=== PATIENT | male | born 1965 | race Hispanic/Latino ===

== ENCOUNTER 2021-05-27 05:36 | Day surgery (SDC) | payer OTHER ==
[2021-05-22 10:30] LABS: #Basophils 0.1 10x3/uL (0.0-0.2); #Eosinphils 0.2 10x3/uL (0.0-0.5); #Monocytes 0.6 10x3/uL (0.0-1.1); #Neutrophils 4.6 10x3/uL (1.5-8.4); %Basophils 0.8 % (0.0-2.0); %Eosinophils 2.1 % (0.0-6.0); %Lymphocytes 29.3 % (18.0-47.0); %Monocytes 7.4 % (0.0-10.0); %Neutrophils 59.8 % (40.0-75.0); Mean Corpuscular HGB CONC 32.6 g/dL (32.0-36.0); Mean Corpuscular Hemoglobin 28.1 pg (27.0-33.0); Mean Corpuscular Volume 86.3 fl (81.2-95.1); Mean Platelet Volume 9.6 fl (7.4-10.4); Platelet Count 278 10x3/uL (150-450); RBC Distribution Width 13.2 % (11.5-14.5); Red Blood Cell (RBC) Count 5.33 10x6/uL (4.32-5.72); White Blood Cell (WBC) Count 7.7 10x3/uL (3.5-10.5)
[2021-05-22 10:49] LABS: Bilirubin Neg (Negative); Blood, Urine Negative (Negative); Clarity Clear (Clear); Glucose, Urine (Dipstick) >=1000 mg/dL (Negative); Ketone, Urine Negative (Negative); Leukocyte Negative (Negative); Nitrite Negative (Negative); Protein, Urine (Dipstick) 15 mg/dl (Neg-Trace); Specific Gravity, Urine 1.015 (1.002-1.036); Urobilinogen Normal mg/dL (Less than 2)
[2021-05-22 10:50] LABS: Anion Gap 13 mmol/L (10-20); BUN (Urea Nitrogen) 28 mg/dL (8.4-25.7); Calc. Creatinine Clearance 0 mL/min (70-130); Carbon Dioxide 22 mmol/L (22-29); Chloride 108 mmol/L (98-107); Glucose 163 mg/dL (70-105); Potassium 4.7 mmol/L (3.5-5.1); Sodium 138 mmol/L (136-145)
[2021-05-22 10:55] LABS: INR-International Normal Ratio 0.9; Prothrombin Time 10.1 sec (9.5-12.1)
[2021-05-22 23:39] LABS: SARS-CoV-2 PCR by NAA Not Detected (NotDetected)
[2021-05-24 10:20] VITALS: BMI 27.6
[2021-05-27] MEDS ORDERED: Fentanyl 100 MCG/2 ML VIAL ONE ×5 (05:58→10:28)
[2021-05-27] MEDS ORDERED: Vancomycin 1 GM/200 ML BAG ONE (06:03)
[2021-05-27] MEDS ORDERED: Sodium Chloride 0.9% 100 ML ONE (06:03)
[2021-05-27] MEDS ORDERED: ceFAZolin 2 GM/DEX 5% 100 ML BAG ONE (06:03)
[2021-05-27] MEDS ORDERED: Tranexamic Acid 1,000 MG/10 ML VIAL ONE ×2 (06:03→09:30)
[2021-05-27] MEDS ORDERED: HYDROmorphone 0.5 MG/0.5 ML SYRINGE ONE (06:11)
[2021-05-27] MEDS ORDERED: Lidocaine 1% (PF) 30 ML VIAL ONE (06:23)
[2021-05-27] MEDS ORDERED: Bupivacaine 0.25% HCL 30 ML VIAL ONE (06:23)
[2021-05-27] MEDS ORDERED: EPINEPHrine 1 MG/ML AMP ONE (06:23)
[2021-05-27] MEDS ORDERED: Bupivacaine PF 0.5% 30 ML VIAL ONE (06:23)
[2021-05-27] MEDS ORDERED: methylPREDNISolone Acetate 40 mg/ml Vial ONE (06:23)
[2021-05-27] MEDS ORDERED: Lidocaine 1% PF 5 ML VIAL ONE (06:39)
[2021-05-27] MEDS ORDERED: Midazolam HCl 2 mg/2 ml Vial ONE (06:39)
[2021-05-27] MEDS ORDERED: Ondansetron PF 4 MG/2 ML Vial ONE (06:45)
[2021-05-27] MEDS ORDERED: Bupivacaine HCl 0.5%/Epinephrine 1:200,000/PF 30 ml Vial ONE (06:45)
[2021-05-27] MEDS ORDERED: PROPOFOL 200 MG/20 ML VIAL ONE (06:45)
[2021-05-27] MEDS ORDERED: Dexamethasone 20 MG/5 ML VIAL ONE (06:45)
[2021-05-27] MEDS ORDERED: Promethazine HCl 25 MG/ML VIAL IVPB PRN (07:36)
[2021-05-27] MEDS ORDERED: Ondansetron HCl/PF 4 MG/2 ML Vial IVP PRN (07:36)
[2021-05-27] MEDS ORDERED: Promethazine HCl 25 MG/ML VIAL IM PRN ×3 (07:36→09:00)
[2021-05-27] MEDS ORDERED: HYDROmorphone 2 MG/ML VIAL SLOW IVP PRN (07:36)
[2021-05-27] MEDS ORDERED: Fentanyl 100 MCG/2 ML VIAL IV PRN (08:07)
[2021-05-27] MEDS ORDERED: HYDROcodone/Acetaminophen 10/325 mg Tablet PO PRN ×2 (08:15)
[2021-05-27] MEDS ORDERED: Ondansetron PF 4 MG/2 ML Vial IVP PRN ×2 (08:15→09:00)
[2021-05-27] MEDS ORDERED: Ropivacaine 0.2% 550 ML 550 ML NERVE BLCK SCH (08:15)
[2021-05-27] MEDS ORDERED: Zolpidem Tartrate 5 MG TAB PO PRN ×2 (08:15→09:00)
[2021-05-27] MEDS ORDERED: traMADol HCl 50 MG TAB PO PRN ×2 (08:15)
[2021-05-27] MEDS ORDERED: diphenhydrAMINE 25 MG CAP PO PRN (09:00)
[2021-05-27] MEDS ORDERED: CEFAZOLIN 2 GM in Premix Bag 1 BAG IVPB SCH (09:00)
[2021-05-27] MEDS ORDERED: Tranexamic Acid 1,000 MG in Sodium Chloride 0.9% 100 ML IVPB SCH (09:00)
[2021-05-27] MEDS ORDERED: Acetaminophen 325 MG TAB PO PRN (09:00)
[2021-05-27] MEDS: Aspirin 81 mg Enteric Coated Tablet PO SCH ×2 (12:47→20:15)
[2021-05-27] MEDS: Ferrous Gluconate 324 MG TAB PO SCH ×2 (12:47→20:16)
[2021-05-27] MEDS: Senokot S 8.6-50 MG TAB PO SCH ×2 (12:48→20:16)
[2021-05-27] MEDS: Multivitamin W/ Minerals 1 TAB PO SCH (12:48)
[2021-05-27] MEDS: Sodium Chloride 0.9% 1,000 ML IV SCH ×2 (12:48→13:53)
[2021-05-27] MEDS: Ketorolac Tromethamine 30 MG/ML VIAL IVP SCH ×2 (13:56→22:15)
[2021-05-27] MEDS: ceFAZolin Sodium/D5W 2 GM in Premix Bag 1 BAG IVPB SCH ×2 (13:56→22:15)
[2021-05-27] MEDS ORDERED: FLU VACC QS2021-22(6MOS UP)/PF 60 MCG/0.5 ML SYRINGE IM ONE (14:00)
[2021-05-27] MEDS ORDERED: Vancomycin 1 GM in Premix Bag 1 BAG IVPB SCH (18:00)
[2021-05-27] MEDS: metFORMIN 500 MG TAB PO SCH (20:16)
[2021-05-27] MEDS ORDERED: Non-Formulary Item 1 EACH (Metformin Hcl [Metformin Hcl] 1,000 MG Tablet) PO SCH (21:00)
[2021-05-28] MEDS: Ketorolac Tromethamine 30 MG/ML VIAL IVP SCH (05:08)
[2021-05-28] MEDS: Sodium Chloride 0.9% 1,000 ML IV SCH (05:09)
[2021-05-28] MEDS ORDERED: Lisinopril 20 MG TAB PO SCH (09:00)
[2021-05-28] MEDS ORDERED: Alogliptin 25 MG TAB PO SCH (09:00)
[2021-05-28] MEDS ORDERED: Non-Formulary Item 1 EACH (Linagliptin [Tradjenta] 5 MG Tablet) PO SCH (09:00)
[2021-05-28] MEDS ORDERED: Fenofibrate Nanocrystallized 145 MG TAB PO SCH (09:00)
[2021-05-28] MEDS: metFORMIN 500 MG TAB PO SCH (09:37)
[2021-05-28] MEDS: Senokot S 8.6-50 MG TAB PO SCH (09:37)
[2021-05-28] MEDS: Aspirin 81 mg Enteric Coated Tablet PO SCH (09:38)
[2021-05-28] MEDS: Ferrous Gluconate 324 MG TAB PO SCH (09:38)
[2021-05-28] MEDS: Multivitamin W/ Minerals 1 TAB PO SCH (09:38)
[2021-05-28 12:11] VITALS: BP 148/74; TEMP 98.2
== END 2021-05-28 12:13 | disposition home or self-care (01) ==
LOC: SDC 05:36 → EDSTATUS 09:00 → SJJU 09:00 → SDC 05-28 12:13
PROVIDERS: ATTEND Orthopaedic Surgery
PROC: 8E0YXBZ Computer Assisted Procedure of Lower Extremity (ICD-10-PCS; principal; 2021-05-27)
PROC: 3E0T3BZ Introduction of Anesthetic Agent into Peripheral Nerves and Plexi, Percutaneous Approach (ICD-10-PCS; principal; 2021-05-27)
PROC: 0SRD0J9 Replacement of Left Knee Joint with Synthetic Substitute, Cemented, Open Approach (ICD-10-PCS; principal; 2021-05-27)
PROC: 3E0U33Z Introduction of Anti-inflammatory into Joints, Percutaneous Approach (ICD-10-PCS; principal; 2021-05-27)
DX: M17.0 Bilateral primary osteoarthritis of knee (principal); E11.9 Type 2 diabetes mellitus without complications; F17.200 Nicotine dependence, unspecified, uncomplicated; Z79.82 Long term (current) use of aspirin; Z79.84 Long term (current) use of oral hypoglycemic drugs; Z79.899 Other long term (current) drug therapy
CPT/HCPCS: 36416; 80048; 81003; 85025; 85610; 86850; 86900; 86901; 87081; A4306; C1713; C1776; J0171; J1100; J1170; J1885; J2001; J2250; J2405; J2704; J2795; J2920; J3010; J3370; J3490; J7050; J7620; S0020; U0003; U0005

== ENCOUNTER 2022-03-14 13:27 | Outpatient (CLI) | payer BC, OTHER ==
[2022-03-14 14:55] LABS: Bilirubin Neg (Negative); Blood, Urine 10 (Negative); Clarity Clear (Clear); Glucose, Urine (Dipstick) 250 mg/dL (Negative); Ketone, Urine Negative (Negative); Leukocyte Negative (Negative); Nitrite Negative (Negative); Protein, Urine (Dipstick) 30 mg/dl (Neg-Trace); Urobilinogen Normal mg/dL (Less than 2)
[2022-03-14 15:03] LABS: Hemoglobin 12.1 g/dL (13.5-17.5); Mean Corpuscular HGB CONC 31.8 g/dL (32.0-36.0); Mean Corpuscular Hemoglobin 26.4 pg (27.0-33.0); Mean Corpuscular Volume 83.2 fl (81.2-95.1); Mean Platelet Volume 8.6 fl (7.4-10.4); Platelet Count 441 10x3/uL (150-450); RBC Distribution Width 13.6 % (11.5-14.5); Red Blood Cell (RBC) Count 4.58 10x6/uL (4.32-5.72); White Blood Cell (WBC) Count 9.2 10x3/uL (3.5-10.5)
[2022-03-14 15:06] LABS: Bacteria/HPF None Seen HPF (None Seen); Mucous/LPF 1+ LPF (<2+); Squamous Epithelial 0-3 HPF (0-3); WBC/HPF 0-3 HPF (0-3)
[2022-03-14 15:16] LABS: INR-International Normal Ratio 0.9; Prothrombin Time 10.3 sec (9.5-12.1)
[2022-03-14 15:24] LABS: Anion Gap 16 mmol/L (10-20); BUN (Urea Nitrogen) 20 mg/dL (8.4-25.7); Calc. Creatinine Clearance 0 mL/min (70-130); Calcium 9.5 mg/dL (7.8-10.44); Carbon Dioxide 25 mmol/L (22-29); Chloride 101 mmol/L (98-107); Estimated GFR 94; Glucose 168 mg/dL (70-105); Potassium 4.9 mmol/L (3.5-5.1); Sodium 137 mmol/L (136-145)
== END 2022-03-14 13:28 | disposition home or self-care (01) ==
LOC: LABBT 13:27
PROVIDERS: ATTEND Orthopaedic Surgery
DX: Z01.818 Encounter for other preprocedural examination (principal); Z20.822 Contact with and (suspected) exposure to COVID-19
CPT/HCPCS: 71046; 80048; 81001; 81003; 85025; 85027; 85610; 86850; 86900; 86901; 87081; 87086; 87811; 93005; 93010; U0003; U0005

== ENCOUNTER 2022-03-14 13:30 | Inpatient (IN) | payer BC, OTHER, SELFPAY ==
[2022-03-14 09:50] VITALS: BMI 25.7
[2022-03-17] MEDS ORDERED: Sodium Chloride 0.9% 100 ML ONE ×2 (07:29→09:33)
[2022-03-17] MEDS ORDERED: Tranexamic Acid 1,000 MG/10 ML VIAL ONE ×2 (07:29→11:47)
[2022-03-17] MEDS ORDERED: Vancomycin 1 GM/200 ML BAG ONE (07:29)
[2022-03-17] MEDS ORDERED: Midazolam HCl 2 mg/2 ml Vial ONE (08:27)
[2022-03-17] MEDS ORDERED: Fentanyl 100 MCG/2 ML VIAL ONE ×3 (08:27→11:54)
[2022-03-17] MEDS ORDERED: Fentanyl 100 MCG/2 ML VIAL IV PRN (09:09)
[2022-03-17] MEDS ORDERED: Zolpidem Tartrate 5 MG TAB PO PRN ×2 (09:15→09:56)
[2022-03-17] MEDS ORDERED: Promethazine HCl 25 MG/ML VIAL IM PRN ×3 (09:15→11:25)
[2022-03-17] MEDS ORDERED: HYDROcodone/Acetaminophen 10/325 mg Tablet PO PRN (09:15)
[2022-03-17] MEDS ORDERED: Ropivacaine 0.2% 550 ML 550 ML NERVE BLCK SCH (09:15)
[2022-03-17] MEDS ORDERED: traMADol HCl 50 MG TAB PO PRN ×2 (09:15)
[2022-03-17] MEDS ORDERED: CEFAZOLIN 2 GM VIAL ONE (09:33)
[2022-03-17] MEDS ORDERED: PROPOFOL 200 MG/20 ML VIAL ONE (09:46)
[2022-03-17] MEDS ORDERED: Ondansetron PF 4 MG/2 ML Vial ONE ×2 (09:46→09:54)
[2022-03-17] MEDS ORDERED: Bupivacaine HCl 0.5%/Epinephrine 1:200,000/PF 30 ml Vial ONE (09:46)
[2022-03-17] MEDS ORDERED: Lidocaine 1% PF 5 ML VIAL ONE (09:46)
[2022-03-17] MEDS ORDERED: Tobramycin Sulfate 1.2 GM VIAL ONE (09:52)
[2022-03-17] MEDS ORDERED: diphenhydrAMINE 25 MG CAP PO PRN (09:56)
[2022-03-17] MEDS ORDERED: Ondansetron PF 4 MG/2 ML Vial IVP PRN (09:56)
[2022-03-17] MEDS ORDERED: Acetaminophen 325 MG TAB PO PRN (09:56)
[2022-03-17] MEDS ORDERED: Tranexamic Acid 1,000 MG in Sodium Chloride 0.9% 100 ML IVPB SCH (10:00)
[2022-03-17] MEDS ORDERED: fentaNYL Citrate/PF 100 MCG/2 ML SYRINGE ONE (10:25)
[2022-03-17] MEDS ORDERED: Promethazine HCl 25 MG/ML VIAL IVPB PRN (11:25)
[2022-03-17] MEDS ORDERED: Ondansetron HCl/PF 4 MG/2 ML Vial IVP PRN (11:25)
[2022-03-17] MEDS ORDERED: Ketorolac Tromethamine 30 MG/ML VIAL ONE (11:54)
[2022-03-17] MEDS ORDERED: Heparin 1,000 UNITS/ML VIAL ONE (12:31)
[2022-03-17] MEDS: Sodium Chloride 0.9% 1,000 ML IV SCH ×2 (13:04→20:02)
[2022-03-17] MEDS: Ketorolac Tromethamine 30 MG/ML VIAL IVP SCH ×2 (13:05→17:04)
[2022-03-17] MEDS: HYDROcodone/Acetaminophen 10/325 mg Tablet PO PRN ×2 (13:27→18:50)
[2022-03-17] MEDS: Clindamycin/D5W 900 MG in Premix Bag 1 BAG IVPB SCH ×2 (13:28→17:04)
[2022-03-17] MEDS ORDERED: HumaLOG 300 UNITS/3 ML VIAL SC PRN (16:38)
[2022-03-17] MEDS ORDERED: Dextrose 50% Abboject 50 ML SYRINGE SLOW IVP PRN (16:38)
[2022-03-17] MEDS ORDERED: Dextrose 5% in Water 1,000 ML IV PRN (16:38)
[2022-03-17] MEDS: Nicotine 14 MG PATCH TD SCH (17:04)
[2022-03-17] MEDS: Ferrous Gluconate 324 MG TAB PO SCH (20:03)
[2022-03-17] MEDS: Senokot S 8.6-50 MG TAB PO SCH (20:03)
[2022-03-17] MEDS: Aspirin 81 mg Enteric Coated Tablet PO SCH (20:42)
[2022-03-17] MEDS: metFORMIN 500 MG TAB PO SCH (20:42)
[2022-03-17] MEDS ORDERED: Non-Formulary Item 1 EACH (Metformin Hcl [Metformin Hcl] 1,000 MG Tablet) PO SCH (21:00)
[2022-03-17] MEDS ORDERED: Vancomycin 1 GM in Premix Bag 1 BAG IVPB SCH (22:00)
[2022-03-18] MEDS: Ketorolac Tromethamine 30 MG/ML VIAL IVP SCH ×5 (00:08→23:50)
[2022-03-18] MEDS: HYDROcodone/Acetaminophen 10/325 mg Tablet PO PRN ×5 (05:55→23:50)
[2022-03-18] MEDS: Sodium Chloride 0.9% 1,000 ML IV SCH ×2 (06:00→15:06)
[2022-03-18 06:21] LABS: Hemoglobin 10.5 g/dL (14.0-18.0); Mean Corpuscular HGB CONC 30.4 g/dL (32.0-36.0); Mean Corpuscular Volume 85.7 fL (78.0-98.0); Mean Platelet Volume 6.4 fL (7.4-10.4); Platelet Count 361 thou/uL (130-400); RBC Distribution Width 13.1 % (11.5-14.5); Red Blood Cell (RBC) Count 4.04 mill/uL (4.70-6.10); White Blood Cell (WBC) Count 9.4 thou/uL (4.8-10.8)
[2022-03-18] MEDS: Fenofibrate Nanocrystallized 145 MG TAB PO SCH (08:50)
[2022-03-18] MEDS: metFORMIN 500 MG TAB PO SCH ×2 (08:50→19:50)
[2022-03-18] MEDS: Senokot S 8.6-50 MG TAB PO SCH ×2 (08:50→19:50)
[2022-03-18] MEDS: Ferrous Gluconate 324 MG TAB PO SCH ×2 (08:50→19:50)
[2022-03-18] MEDS: Multivitamin W/ Minerals 1 TAB PO SCH (08:50)
[2022-03-18] MEDS: Aspirin 81 mg Enteric Coated Tablet PO SCH ×2 (08:50→19:50)
[2022-03-18] MEDS: Lisinopril 20 MG TAB PO SCH (08:51)
[2022-03-18] MEDS: Alogliptin 25 MG TAB PO SCH (08:51)
[2022-03-18] MEDS ORDERED: Non-Formulary Item 1 EACH (Linagliptin [Tradjenta] 5 MG Tablet) PO SCH (09:00)
[2022-03-18] MEDS ORDERED: Enoxaparin Sodium 40 MG/0.4 ML SYRINGE SC SCH (14:30)
[2022-03-18] MEDS: Nicotine 14 MG PATCH TD SCH (15:06)
[2022-03-18] MEDS: cefTRIAXone\\ROCEPHIN 2 GM in Sodium Chloride 0.9% 100 ML IVPB SCH (15:06)
[2022-03-18] MEDS: Vancomycin HCl 1.25 GM in Sodium Chloride 0.9% 250 ML 250 ML IVPB SCH (16:35)
[2022-03-19] MEDS: HYDROcodone/Acetaminophen 10/325 mg Tablet PO PRN ×5 (03:57→20:20)
[2022-03-19] MEDS: Sodium Chloride 0.9% 1,000 ML IV SCH ×2 (04:05→12:30)
[2022-03-19] MEDS: Vancomycin HCl 1.25 GM in Sodium Chloride 0.9% 250 ML 250 ML IVPB SCH (04:14)
[2022-03-19] MEDS: Ketorolac Tromethamine 30 MG/ML VIAL IVP SCH (06:00)
[2022-03-19 06:02] LABS: #Basophils 0.1 thou/uL (0.0-0.2); #Eosinphils 0.4 thou/uL (0.0-0.7); #Lymphocytes 2.6 thou/uL (1.20-3.40); #Monocytes 0.7 thou/uL (0.11-0.59); %Basophils 0.6 % (0.0-1.0); %Eosinophils 4.4 % (0.0-10.0); %Lymphocytes 29.9 % (21.0-51.0); %Monocytes 7.8 % (0.0-10.0); %Neutrophils 57.3 % (42.0-75.0); Hemoglobin 10.6 g/dL (14.0-18.0); Mean Corpuscular HGB CONC 31.5 g/dL (32.0-36.0); Mean Corpuscular Volume 85.9 fL (78.0-98.0); Platelet Count 351 thou/uL (130-400); Red Blood Cell (RBC) Count 3.93 mill/uL (4.70-6.10); White Blood Cell (WBC) Count 8.8 thou/uL (4.8-10.8)
[2022-03-19 06:33] LABS: Anion Gap 14 mmol/L (10-20); BUN (Urea Nitrogen) 25 mg/dL (8.4-25.7); Calc. Creatinine Clearance 82 mL/min (70-130); Calcium 8.7 mg/dL (7.8-10.44); Carbon Dioxide 24 mmol/L (22-29); Chloride 109 mmol/L (98-107); Estimated GFR 92; Glucose 80 mg/dL (70-105); Magnesium 1.9 mg/dL (1.6-2.6); Sodium 142 mmol/L (136-145)
[2022-03-19] MEDS: Alogliptin 25 MG TAB PO SCH (08:39)
[2022-03-19] MEDS: Lisinopril 20 MG TAB PO SCH (08:39)
[2022-03-19] MEDS: Ferrous Gluconate 324 MG TAB PO SCH ×2 (08:39→20:20)
[2022-03-19] MEDS: Aspirin 81 mg Enteric Coated Tablet PO SCH ×2 (08:39→20:20)
[2022-03-19] MEDS: metFORMIN 500 MG TAB PO SCH ×2 (08:39→20:21)
[2022-03-19] MEDS: Senokot S 8.6-50 MG TAB PO SCH ×2 (08:39→20:21)
[2022-03-19] MEDS: Enoxaparin Sodium 40 MG/0.4 ML SYRINGE SC SCH (08:40)
[2022-03-19] MEDS: Fenofibrate Nanocrystallized 145 MG TAB PO SCH (08:40)
[2022-03-19] MEDS: Multivitamin W/ Minerals 1 TAB PO SCH (08:40)
[2022-03-19] MEDS: cefTRIAXone\\ROCEPHIN 2 GM in Sodium Chloride 0.9% 100 ML IVPB SCH (16:01)
[2022-03-19] MEDS: VANCOMYCIN 1.25 GM/250 ML BAG 1.25 GM in Premix Bag 1 BAG IVPB SCH (16:01)
[2022-03-19] MEDS: Nicotine 14 MG PATCH TD SCH (17:25)
[2022-03-20] MEDS: Sodium Chloride 0.9% 1,000 ML IV SCH ×3 (00:48→17:33)
[2022-03-20] MEDS: HYDROcodone/Acetaminophen 10/325 mg Tablet PO PRN ×6 (00:48→23:10)
[2022-03-20] MEDS: Rifampin 300 MG CAP PO SCH ×3 (01:08→21:19)
[2022-03-20 04:19] LABS: #Eosinphils 0.3 thou/uL (0.0-0.7); #Lymphocytes 2.2 thou/uL (1.20-3.40); #Monocytes 0.5 thou/uL (0.11-0.59); #Neutrophils 5.9 thou/uL (1.40-6.50); %Basophils 0.3 % (0.0-1.0); %Eosinophils 3.3 % (0.0-10.0); %Lymphocytes 24.2 % (21.0-51.0); %Monocytes 5.8 % (0.0-10.0); %Neutrophils 66.5 % (42.0-75.0); Hemoglobin 10.5 g/dL (14.0-18.0); Mean Corpuscular HGB CONC 31.4 g/dL (32.0-36.0); Mean Corpuscular Hemoglobin 26.9 pg (27.0-31.0); Mean Corpuscular Volume 85.6 fL (78.0-98.0); Mean Platelet Volume 6.2 fL (7.4-10.4); Platelet Count 359 thou/uL (130-400); RBC Distribution Width 12.9 % (11.5-14.5); Red Blood Cell (RBC) Count 3.92 mill/uL (4.70-6.10); White Blood Cell (WBC) Count 8.9 thou/uL (4.8-10.8)
[2022-03-20 04:36] LABS: Vancomycin, Trough 17.8 ug/mL
[2022-03-20 04:40] LABS: Anion Gap 12 mmol/L (10-20); BUN (Urea Nitrogen) 25 mg/dL (8.4-25.7); Calc. Creatinine Clearance 94 mL/min (70-130); Calcium 8.9 mg/dL (7.8-10.44); Carbon Dioxide 26 mmol/L (22-29); Chloride 106 mmol/L (98-107); Estimated GFR 102; Glucose 85 mg/dL (70-105); Potassium 4.2 mmol/L (3.5-5.1); Sodium 140 mmol/L (136-145)
[2022-03-20] MEDS: VANCOMYCIN 1.25 GM/250 ML BAG 1.25 GM in Premix Bag 1 BAG IVPB SCH ×2 (05:03→15:47)
[2022-03-20] MEDS: Senokot S 8.6-50 MG TAB PO SCH ×2 (08:24→21:19)
[2022-03-20] MEDS: Lisinopril 20 MG TAB PO SCH (08:24)
[2022-03-20] MEDS: Enoxaparin Sodium 40 MG/0.4 ML SYRINGE SC SCH (08:24)
[2022-03-20] MEDS: Aspirin 81 mg Enteric Coated Tablet PO SCH ×2 (08:24→21:19)
[2022-03-20] MEDS: Alogliptin 25 MG TAB PO SCH (08:24)
[2022-03-20] MEDS: Ferrous Gluconate 324 MG TAB PO SCH ×2 (08:24→21:18)
[2022-03-20] MEDS: Fenofibrate Nanocrystallized 145 MG TAB PO SCH (08:25)
[2022-03-20] MEDS: metFORMIN 500 MG TAB PO SCH ×2 (08:25→21:16)
[2022-03-20] MEDS: Multivitamin W/ Minerals 1 TAB PO SCH (08:25)
[2022-03-20] MEDS: Ondansetron PF 4 MG/2 ML Vial IVP PRN ×2 (10:04→23:29)
[2022-03-20] MEDS: Nicotine 14 MG PATCH TD SCH (16:11)
[2022-03-21 05:59] LABS: Hemoglobin 10.8 g/dL (14.0-18.0); Mean Corpuscular Hemoglobin 26.1 pg (27.0-31.0); Mean Corpuscular Volume 84.2 fL (78.0-98.0); Mean Platelet Volume 6.1 fL (7.4-10.4); Platelet Count 370 thou/uL (130-400); Red Blood Cell (RBC) Count 4.13 mill/uL (4.70-6.10); White Blood Cell (WBC) Count 7.7 thou/uL (4.8-10.8)
[2022-03-21] MEDS: Sodium Chloride 0.9% 1,000 ML IV SCH ×2 (06:28→16:39)
[2022-03-21] MEDS: VANCOMYCIN 1.25 GM/250 ML BAG 1.25 GM in Premix Bag 1 BAG IVPB SCH (07:20)
[2022-03-21] MEDS: Ondansetron PF 4 MG/2 ML Vial IVP PRN ×2 (09:45→20:26)
[2022-03-21] MEDS: Fenofibrate Nanocrystallized 145 MG TAB PO SCH (09:48)
[2022-03-21] MEDS: Multivitamin W/ Minerals 1 TAB PO SCH (09:49)
[2022-03-21] MEDS: Lisinopril 20 MG TAB PO SCH (09:49)
[2022-03-21] MEDS: Alogliptin 25 MG TAB PO SCH (09:49)
[2022-03-21] MEDS: Ferrous Gluconate 324 MG TAB PO SCH ×2 (09:49→20:20)
[2022-03-21] MEDS: Rifampin 300 MG CAP PO SCH ×2 (09:49→20:21)
[2022-03-21] MEDS: metFORMIN 500 MG TAB PO SCH ×2 (09:49→20:20)
[2022-03-21] MEDS: Senokot S 8.6-50 MG TAB PO SCH ×2 (09:49→20:20)
[2022-03-21] MEDS: Aspirin 81 mg Enteric Coated Tablet PO SCH ×2 (09:49→20:20)
[2022-03-21] MEDS: Enoxaparin Sodium 40 MG/0.4 ML SYRINGE SC SCH (09:50)
[2022-03-21] MEDS: HYDROcodone/Acetaminophen 10/325 mg Tablet PO PRN ×3 (09:51→20:18)
[2022-03-21 15:13] LABS: Vancomycin, Trough 20.3 ug/mL
[2022-03-21] MEDS: Vancomycin 1 GM in Premix Bag 1 BAG IVPB SCH (16:40)
[2022-03-21] MEDS: Nicotine 14 MG PATCH TD SCH (19:30)
[2022-03-22] MEDS: HYDROcodone/Acetaminophen 10/325 mg Tablet PO PRN ×5 (00:19→16:42)
[2022-03-22] MEDS: Sodium Chloride 0.9% 1,000 ML IV SCH ×2 (01:12→09:59)
[2022-03-22] MEDS: Vancomycin 1 GM in Premix Bag 1 BAG IVPB SCH (04:36)
[2022-03-22 05:04] LABS: #Basophils 0.1 thou/uL (0.0-0.2); #Eosinphils 0.4 thou/uL (0.0-0.7); #Lymphocytes 2.4 thou/uL (1.20-3.40); #Monocytes 0.5 thou/uL (0.11-0.59); #Neutrophils 4.1 thou/uL (1.40-6.50); %Basophils 1.3 % (0.0-1.0); %Eosinophils 5.2 % (0.0-10.0); %Lymphocytes 31.9 % (21.0-51.0); %Monocytes 6.9 % (0.0-10.0); %Neutrophils 54.8 % (42.0-75.0); Hemoglobin 10.7 g/dL (14.0-18.0); Mean Corpuscular HGB CONC 32.4 g/dL (32.0-36.0); Mean Corpuscular Hemoglobin 27.2 pg (27.0-31.0); Mean Corpuscular Volume 83.7 fL (78.0-98.0); Mean Platelet Volume 6.1 fL (7.4-10.4); Platelet Count 362 thou/uL (130-400); RBC Distribution Width 13.1 % (11.5-14.5); Red Blood Cell (RBC) Count 3.95 mill/uL (4.70-6.10); White Blood Cell (WBC) Count 7.5 thou/uL (4.8-10.8)
[2022-03-22 05:19] LABS: Anion Gap 14 mmol/L (10-20); BUN (Urea Nitrogen) 18 mg/dL (8.4-25.7); Calc. Creatinine Clearance 107 mL/min (70-130); Calcium 8.6 mg/dL (7.8-10.44); Carbon Dioxide 23 mmol/L (22-29); Chloride 108 mmol/L (98-107); Estimated GFR 106; Glucose 74 mg/dL (70-105); Magnesium 1.5 mg/dL (1.6-2.6); Sodium 141 mmol/L (136-145)
[2022-03-22] MEDS: Fenofibrate Nanocrystallized 145 MG TAB PO SCH (08:36)
[2022-03-22] MEDS: metFORMIN 500 MG TAB PO SCH (08:36)
[2022-03-22] MEDS: Alogliptin 25 MG TAB PO SCH (08:36)
[2022-03-22] MEDS: Lisinopril 20 MG TAB PO SCH (08:36)
[2022-03-22] MEDS: Aspirin 81 mg Enteric Coated Tablet PO SCH (08:36)
[2022-03-22] MEDS: Ferrous Gluconate 324 MG TAB PO SCH (08:36)
[2022-03-22] MEDS: Senokot S 8.6-50 MG TAB PO SCH (08:37)
[2022-03-22] MEDS: Multivitamin W/ Minerals 1 TAB PO SCH (08:37)
[2022-03-22] MEDS: Enoxaparin Sodium 40 MG/0.4 ML SYRINGE SC SCH (08:37)
[2022-03-22] MEDS: Rifampin 300 MG CAP PO SCH (08:42)
[2022-03-22] MEDS: Ondansetron PF 4 MG/2 ML Vial IVP PRN (08:42)
[2022-03-22] MEDS ORDERED: Magnesium Sulfate In Water 4 GM in Premix Bag 1 BAG IVPB SCH (10:45)
[2022-03-22 11:23] VITALS: BP 142/76
[2022-03-22] MEDS: Nicotine 14 MG PATCH TD SCH (16:37)
[2022-03-22 17:14] VITALS: TEMP 98.7
[2022-03-22] MEDS ORDERED: Ciprofloxacin 500 MG TAB PO SCH (20:00)
== END 2022-03-22 18:52 | disposition home or self-care (01) | DRG 467 ==
LOC: SURG A 03-17 06:50
PROVIDERS: ADMIT Family Medicine; ATTEND Family Medicine
PROC: 0SPD0JZ Removal of Synthetic Substitute from Left Knee Joint, Open Approach (ICD-10-PCS; principal; 2022-03-17)
PROC: 0SRD0J9 Replacement of Left Knee Joint with Synthetic Substitute, Cemented, Open Approach (ICD-10-PCS; 2022-03-17)
PROC: 02HV33Z Insertion of Infusion Device into Superior Vena Cava, Percutaneous Approach (ICD-10-PCS; 2022-03-19)
PROC: B548ZZA Ultrasonography of Superior Vena Cava, Guidance (ICD-10-PCS; 2022-03-19)
DX: T84.54XA Infection and inflammatory reaction due to internal left knee prosthesis, initial encounter (principal); M00.262 Other streptococcal arthritis, left knee; Z96.652 Presence of left artificial knee joint; E78.00 Pure hypercholesterolemia, unspecified; E11.9 Type 2 diabetes mellitus without complications; F17.210 Nicotine dependence, cigarettes, uncomplicated; I10 Essential (primary) hypertension; Y83.8 Other surgical procedures as the cause of abnormal reaction of the patient, or of later complication, without mention of misadventure at the time of the procedure; B95.4 Other streptococcus as the cause of diseases classified elsewhere; Z79.899 Other long term (current) drug therapy; Z79.84 Long term (current) use of oral hypoglycemic drugs
CPT/HCPCS: 36415; 36416; 36569; 80048; 80202; 83735; 85027; 87070; 87186; 87205; A4306; C1713; C1751; C1776; C1889; J0690; J0696; J1644; J1650; J1885; J2250; J2405; J2704; J2795; J3010; J3260; J3370; J3475; J3490; J7050

== ENCOUNTER 2024-05-03 12:19 | Outpatient (CLI) | payer OTHER | END 2024-05-03 12:20 | disposition home or self-care (01) | LOC: CT 12:19 | PROVIDERS: ATTEND Orthopaedic Surgery | DX: M17.11 Unilateral primary osteoarthritis, right knee (principal) ==

== ENCOUNTER 2024-05-04 10:27 | Outpatient (CLI) | payer OTHER ==
[2024-05-04 12:38] LABS: #Basophils 0.04 10x3/uL (0.0-0.2); %Basophils 0.5 % (0.0-1.0); %Eosinophils 1.7 % (0.0-10.0); %Lymphocytes 31.5 % (21.0-51.0); %Monocytes 6.5 % (0.0-10.0); %Neutrophils 59.7 % (42.0-75.0); Hematocrit 45.5 % (42.0-52.0); Hemoglobin 14.5 g/dL (14.0-18.0); Mean Corpuscular HGB CONC 31.9 g/dL (32.0-36.0); Mean Corpuscular Hemoglobin 27.8 pg (27.0-31.0); Mean Corpuscular Volume 87.2 fL (78.0-98.0); Mean Platelet Volume 9.3 fL (7.4-10.4); Platelet Count 295 10x3/uL (130-400); RBC Distribution Width 13.2 % (11.5-14.5); Red Blood Cell (RBC) Count 5.22 mill/uL (4.70-6.10)
[2024-05-04 12:44] LABS: Bilirubin Negative (Negative); Blood, Urine Negative (Negative); Clarity Clear (Clear); Glucose, Urine (Dipstick) >=1000 mg/dL (Negative); Ketone, Urine Negative (Negative); Leukocyte Negative Leu/uL (Negative); Nitrite Negative (Negative); Protein, Urine (Dipstick) 20 mg/dL (Neg-Trace); Specific Gravity, Urine 1.024 (1.002-1.036); Urobilinogen Normal mg/dL (Less than 2)
[2024-05-04 12:49] LABS: Anion Gap 10 mmol/L (10-20); BUN (Urea Nitrogen) 19 mg/dL (8.4-25.7); Calc. Creatinine Clearance 0 mL/min (70-130); Calcium 9.3 mg/dL (7.8-10.44); Carbon Dioxide 26 mmol/L (22-29); Chloride 107 mmol/L (98-107); Estimated GFR 100; Glucose 120 mg/dL (70-105); Potassium 4.4 mmol/L (3.5-5.1); Sodium 139 mmol/L (136-145)
[2024-05-04 12:52] LABS: INR-International Normal Ratio 0.9; Prothrombin Time 12.3 sec (12.0-14.7)
== END 2024-05-04 10:28 | disposition home or self-care (01) ==
LOC: LABBT 10:27
PROVIDERS: ATTEND Orthopaedic Surgery
DX: Z01.818 Encounter for other preprocedural examination (principal); M17.11 Unilateral primary osteoarthritis, right knee
CPT/HCPCS: 71045; 80048; 81003; 85025; 85610; 87081; 93005; 93010

== ENCOUNTER 2024-05-09 08:03 | Observation (INO) | payer OTHER ==
[2024-05-09] MEDS ORDERED: Sodium Chloride 0.9% 200 ML ONE (08:55)
[2024-05-09] MEDS ORDERED: CEFAZOLIN 2 GM VIAL ONE (08:55)
[2024-05-09] MEDS ORDERED: Tranexamic Acid 1,000 MG/10 ML VIAL ONE ×2 (08:55→12:31)
[2024-05-09] MEDS ORDERED: Vancomycin 1 GM/200 ML (FROZEN) BAG ONE (09:03)
[2024-05-09] MEDS ORDERED: EPINEPHrine 1 MG/ML VIAL ONE (09:09)
[2024-05-09] MEDS ORDERED: fentaNYL 50 mcg/mL 1 mL Vial ONE ×2 (09:09→13:12)
[2024-05-09] MEDS ORDERED: Midazolam HCl 2 mg/2 ml Vial ONE (09:09)
[2024-05-09] MEDS ORDERED: Lidocaine 1% (PF) 30 ML VIAL ONE (09:10)
[2024-05-09] MEDS ORDERED: Bupivacaine PF 0.5% 30 ML VIAL ONE ×2 (09:10→09:25)
[2024-05-09] MEDS ORDERED: fentaNYL 50 mcg/mL 1 mL Vial SLOW IVP PRN (09:44)
[2024-05-09] MEDS ORDERED: traMADol HCl 50 MG TAB PO PRN ×2 (09:45)
[2024-05-09] MEDS ORDERED: Ondansetron PF 4 MG/2 ML Vial IVP PRN ×2 (09:45→14:42)
[2024-05-09] MEDS ORDERED: Promethazine HCl 25 MG/ML VIAL IM PRN ×2 (09:45→14:42)
[2024-05-09] MEDS ORDERED: Ropivacaine 0.2% 550 ML 550 ML NERVE BLCK SCH (09:45)
[2024-05-09] MEDS ORDERED: fentaNYL PF 100 MCG/2 ML SYRINGE ONE ×2 (10:45→12:37)
[2024-05-09] MEDS ORDERED: Albuterol HFA (OR) 200 PUFF INH ONE (10:50)
[2024-05-09] MEDS ORDERED: ePHEDrine Sulfate 50 MG/10 ML VIAL ONE (10:57)
[2024-05-09] MEDS ORDERED: PHENYLEPHRINE-NS 100 MCG/ML 10 ML SYRINGE ONE (11:06)
[2024-05-09] MEDS ORDERED: Ondansetron PF 4 MG/2 ML Vial ONE (11:18)
[2024-05-09] MEDS ORDERED: Dexamethasone 20 MG/5 ML VIAL ONE (11:18)
[2024-05-09] MEDS ORDERED: Sodium Chloride 0.9% 100 ML ONE (12:31)
[2024-05-09] MEDS ORDERED: Ipratropium/Albuterol 3 ML NEB ONE (12:47)
[2024-05-09] MEDS ORDERED: Meperidine HCl/PF 25 MG (1 mL) VIAL ONE (12:47)
[2024-05-09] MEDS ORDERED: HYDROmorphone 0.5 MG/0.5 ML SYRINGE ONE ×2 (13:56→14:14)
[2024-05-09] MEDS ORDERED: diphenhydrAMINE 25 MG CAP PO PRN (14:42)
[2024-05-09] MEDS ORDERED: Acetaminophen 325 MG TAB PO PRN (14:42)
[2024-05-09] MEDS ORDERED: Zolpidem Tartrate 5 MG TAB PO PRN (14:42)
[2024-05-09] MEDS ORDERED: Tranexamic Acid 1,000 MG in Sodium Chloride 0.9% 100 ML IVPB SCH (14:45)
[2024-05-09 15:10] VITALS: BMI 24.7
[2024-05-09] MEDS: Ketorolac Tromethamine 30 MG (1 mL) VIAL IVP SCH (15:23)
[2024-05-09] MEDS: Sodium Chloride 0.9% 1,000 ML IV SCH (15:24)
[2024-05-09] MEDS: CEFAZOLIN 2 GM in Sodium Chloride 0.9% 100 ML IVPB SCH (18:12)
[2024-05-09] MEDS: Aspirin 81 mg Enteric Coated Tablet PO SCH (20:35)
[2024-05-09] MEDS: Vancomycin (BATCH) 1.5 GM in Premix 1 BAG IVPB SCH (20:35)
[2024-05-09] MEDS: HYDROcodone/Acetaminophen 10/325 mg Tablet PO PRN (20:35)
[2024-05-09] MEDS: Zolpidem Tartrate 5 MG TAB PO PRN (20:49)
[2024-05-10 08:19] LABS: Hematocrit 36.8 % (42.0-52.0); Hemoglobin 11.9 g/dL (14.0-18.0); Mean Corpuscular HGB CONC 32.3 g/dL (32.0-36.0); Mean Corpuscular Hemoglobin 28.6 pg (27.0-31.0); Mean Corpuscular Volume 88.5 fL (78.0-98.0); Mean Platelet Volume 9.2 fL (7.4-10.4); Platelet Count 233 10x3/uL (130-400); Red Blood Cell (RBC) Count 4.16 mill/uL (4.70-6.10)
[2024-05-10] MEDS: HYDROcodone/Acetaminophen 10/325 mg Tablet PO PRN (09:50)
[2024-05-10] MEDS: Ferrous Gluconate 324 MG TAB PO SCH (09:51)
[2024-05-10] MEDS: Multivitamin W/ Minerals 1 TAB PO SCH (09:51)
[2024-05-10] MEDS: Senokot S 8.6-50 MG TAB PO SCH (09:51)
[2024-05-10] MEDS: Atorvastatin Calcium 40 MG TAB PO SCH (09:52)
[2024-05-10 12:03] VITALS: BP 142/69; TEMP 98.1
== END 2024-05-10 15:45 | disposition home or self-care (01) ==
LOC: SDC 08:03 → SURG A 14:53 → SDC 05-10 09:32 → SURG A 05-10 09:33
PROVIDERS: ADMIT Orthopaedic Surgery; ATTEND Orthopaedic Surgery
PROC: 0SRC0JZ Replacement of Right Knee Joint with Synthetic Substitute, Open Approach (ICD-10-PCS; principal; 2024-05-10)
DX: M17.11 Unilateral primary osteoarthritis, right knee (principal); E11.9 Type 2 diabetes mellitus without complications; F17.210 Nicotine dependence, cigarettes, uncomplicated; Z79.84 Long term (current) use of oral hypoglycemic drugs; Z79.899 Other long term (current) drug therapy
CPT/HCPCS: 0055T; 27447; 36415; 85027; A4306; C1713; C1889; J0171; J0665; J1100; J1170; J1885; J2001; J2175; J2250; J2405; J2795; J3010; J3370; J3370-JW; J7030; J7620